=== PATIENT | female | born 1945 | race Caucasian/White ===

== ENCOUNTER 2020-04-30 12:02 | Emergency (ER) | payer MEDICARE ==
--- NOTE | 2020-04-30 13:14 | EDM.PDOC ---
ED HPI GENERAL MEDICAL PROBLEM - General Chief Complaint: Cardiovascular Problem Stated Complaint: COIVD POSITIVE Time Seen by Provider: 04/30/20 12:55 Source of Information: Reports: Patient, Family, Old Records History Limitations: Reports: No Limitations - History of Present Illness INITIAL COMMENTS - FREE TEXT/NARRATIVE: 74 yo female was just discharged from the [facility] a day or two ago after a 2 week admission for Covid. Required oxygen upon discharge due to the Covid and uses it around the clock. Yesterday in the morning she had a syncopal spell on the way to the bathroom and today had a near syncopal spell while sitting. The family called nurse direct and they were told to come here. Her stools have been darker than normal for the past 3 days. No fever or vomiting. Eating OK. Her pulse ox was low at home transiently and came up on its own. The daughter thought her hands might have been cold at the time. She didn't feel more SOB than usual. Has a pHx of a coronary stent. No recent chest pain. Onset: Sudden Onset Date: 04/29/20 Duration: Minutes:, Resolved Prior to Arrival Location: Reports: Generalized Quality: Reports: Other (no pain) Improves with: Reports: Other (lying) Worsens with: Reports: Other (? standing) Context: Reports: Other (See HPI) Associated Symptoms: Reports: Syncope, Weakness. Denies: Chest Pain, F ever/Chills, Nausea/Vomiting, Shortness of Breath Treatments ARCHIVES TECHNICIAN: Reports: Other (see below) (none) - Related Data Allergies Allergy/AdvReac Type Severity Reaction Status Date / Time acarbose Allergy Cannot Verified 04/30/20 12:35 Remember cortisone Allergy Tachycardia Verified 04/30/20 13:49 Iodinated Contrast Media Allergy Abdominal Verified 04/30/20 13:49 Cramps lisinopril Allergy Cannot Verified 04/30/20 12:41 Remember meperidine [From Demerol] Allergy Rash Verified 04/30/20 13:49 nifedipine Allergy Nausea Verified 04/30/20 13:49 pentazocine Allergy Nausea Verified 04/30/20 13:49 Gjxendx-Kwg-Lpa Reductase Allergy Cannot Verified 04/30/20 13:49 Inhibitor Remember Sulfa (Sulfonamide Allergy Rash Verified 04/30/20 13:49 Antibiotics) ticagrelor [From Brilinta] Allergy Rash Verified 04/30/20 13:49 Amoxicillin-Pot Clavulanate Allergy Cannot Uncoded 04/30/20 12:38 Remember Home Meds: Home Meds Aspirin 1 tab PO DAILY 04/30/20 [History] Clopidogrel [Plavix] 1 tab PO DAILY 04/30/20 [History] Dexbrompheniramine Maleate [Ala-Hist IR] 3 tab PO DAILY 04/30/20 [History] Furosemide [Lasix] 1 tab PO BEDTIME 04/30/20 [History] Furosemide [Lasix] 1 tab PO DAILY 04/30/20 [History] Hydrochlorothiazide/Losartan [Hyzaar 100-25 MG] 1 tab PO DAILY 04/30/20 [History] Insulin Regular, Human [Humulin R U-500 Kwikpen] 1 injection SQ TID 04/30/20 [History] Levothyroxine [Synthroid] 1 tab PO DAILY 04/30/20 [History] Metoprolol Succinate 150 mg PO DAILY 04/30/20 [History] Semaglutide [Rybelsus] 1 tab PO DAILY 04/30/20 [History] Spironolactone [Aldactone] 12.5 mg PO DAILY 04/30/20 [History] metFORMIN [Glucophage XR] 2 tab PO DAILY 04/30/20 [History] Past Medical History - Infectious Disease History Infectious Disease History: Reports: Novel Coronavirus - Past Surgical History Cardiovascular Surgical History: Reports: Coronary Artery Stent Social & Family History - Tobacco Use Tobacco Use Status *Q: Never Tobacco User ED ROS GENERAL - Review of Systems Review Of Systems: See Below Constitutional: Reports: No Symptoms HEENT: Reports: No Symptoms Respiratory: Reports: No Symptoms Cardiovascular: Reports: Dyspnea on Exertion (since Covid dx), Lightheadedness, Syncope (yesterday). Denies: Chest Pain, Edema, Palpitations GI/Abdominal: Reports: Black Stool (blackish-green). Denies: Bloody Stool, Constipation, Diarrhea, Nausea, Vomiting : Reports: No Symptoms Musculoskeletal: Reports: No Symptoms Skin: Reports: No Symptoms Neurological: Reports: No Symptoms ED EXAM, GENERAL - Physical Exam Exam: See Below Exam Limited By: No Limitations General Appearance: Alert, WD/WN, No Apparent Distress, Obese Eye Exam: Bilateral Eye: Normal Inspection Ears: Normal External Exam, Normal Canal, Hearing Grossly Normal Ear Exam: Bilateral Ear: Auricle Normal, Canal Normal Nose: Normal Inspection, No Blood Throat/Mouth: Normal Inspection, Normal Lips, Normal Oropharynx, Normal Voice, No Airway Compromise Head: Atraumatic, Normocephalic Neck: Normal Inspection Respiratory/Chest: No Respiratory Distress, No Accessory Muscle Use, Rales (throughout both lungs) Cardiovascular: Regular Rate, Rhythm, No Edema GI/Abdominal: Normal Bowel Sounds, Soft, Non-Tender, No Distention, Other (rectal exam: no impaction, stool hard, dark brown in color) Back Exam: Normal Inspection. No: CVA Tenderness (R), CVA Tenderness (L) Extremities: Normal Inspection, Normal Range of Motion, Non-Tender, No Pedal Edema Neurological: Alert, Oriented, CN II-XII Intact, Normal Cognition, No Motor/Sensory Deficits Psychiatric: Normal Affect, Normal Mood Skin Exam: Warm, Dry, Intact, Normal Color, No Rash Course - Vital Signs Last Recorded V/S: Last Vital Signs Temp 36.7 C 04/30/20 12:52 Pulse 75 04/30/20 16:03 Resp 12 04/30/20 16:03 BP 103/32 L 04/30/20 16:03 Pulse Ox 97 04/30/20 16:03 Orthostatic Blood Pressure [ 96/54 Standing] Orthostatic Blood Pressure [ 98/48 Sitting] Orthostatic Blood Pressure [ 106/43 Supine] - Orders/Labs/Meds Orders: Active Orders 24 hr Category Date Time Status Cardiac Monitoring [RC] .As Directed Care 04/30/20 12:58 Active Orthostatic Vital Signs [RC] ASDIRECTED Care 04/30/20 12:58 Active Labs: Laboratory Tests 04/30/20 04/30/20 04/30/20 Range/Units 13:14 13:14 13:14 WBC 12.9 H (4.5-11.0) K/uL RBC 2.97 L (3.30-5.50) M/uL Hgb 9.0 L (12.0-15.0) g/dL Hct 28.5 L (36.0-48.0) % MCV 96 (80-98) fL MCH 30 (27-31) pg MCHC 32 (32-36) % Plt Count 230 (150-400) K/uL Sodium 138 L (140-148) mmol/L Potassium 3.5 L (3.6-5.2) mmol/L Chloride 99 L (100-108) mmol/L Carbon Dioxide 29 (21-32) mmol/L Anion Gap 13.5 (5.0-14.0) mmol/L BUN 78 H* (7-18) mg/dL Creatinine 1.4 H (0.6-1.0) mg/dL Est Cr Clr Drug Dosing 33.50 mL/min Estimated GFR (MDRD) 37 L (>60) Glucose 213 H (74-106) mg/dL Calcium 8.5 (8.5-10.1) mg/dL Magnesium (1.8-2.4) mg/dL Troponin I 0.072 H* (0.000-0.056) ng/mL Urine Color (YELLOW) Urine Appearance (CLEAR) Urine pH (5.0-8.0) Ur Specific [place] (1.008-1.030) Urine Protein (NEGATIVE) mg/dL Urine Glucose (UA) (NEGATIVE) mg/dL Urine Ketones (NEGATIVE) mg/dL Urine Occult Blood (NEGATIVE) Urine Nitrite (NEGATIVE) Urine Bilirubin (NEGATIVE) Urine Urobilinogen (0.2-1.0) EU/dL Ur Leukocyte Esterase (NEGATIVE) Urine RBC (0-5) Urine WBC (0-5) Ur Epithelial Cells Amorphous Sediment Urine Bacteria Urine Mucus 04/30/20 04/30/20 04/30/20 Range/Units 13:31 13:55 15:20 WBC (4.5-11.0) K/uL RBC (3.30-5.50) M/uL Hgb (12.0-15.0) g/dL Hct (36.0-48.0) % MCV (80-98) fL MCH (27-31) pg MCHC (32-36) % Plt Count (150-400) K/uL Sodium (140-148) mmol/L Potassium (3.6-5.2) mmol/L Chloride (100-108) mmol/L Carbon Dioxide (21-32) mmol/L Anion Gap (5.0-14.0) mmol/L BUN (7-18) mg/dL Creatinine (0.6-1.0) mg/dL Est Cr Clr Drug Dosing mL/min Estimated GFR (MDRD) (>60) Glucose (74-106) mg/dL Calcium (8.5-10.1) mg/dL Magnesium 2.3 (1.8-2.4) mg/dL Troponin I 0.066 H* (0.000-0.056) ng/mL Urine Color Yellow (YELLOW) Urine Appearance Slightly cloudy A (CLEAR) Urine pH 5.0 (5.0-8.0) Ur Specific [place] 1.015 (1.008-1.030) Urine Protein Negative (NEGATIVE) mg/dL Urine Glucose (UA) Negative (NEGATIVE) mg/dL Urine Ketones Negative (NEGATIVE) mg/dL Urine Occult Blood Small H (NEGATIVE) Urine Nitrite Negative (NEGATIVE) Urine Bilirubin Negative (NEGATIVE) Urine Urobilinogen 1.0 (0.2-1.0) EU/dL Ur Leukocyte Esterase Trace H (NEGATIVE) Urine RBC 0-5 (0-5) Urine WBC 0-5 (0-5) Ur Epithelial Cells Few Amorphous Sediment Not seen Urine Bacteria Moderate Urine Mucus Not seen Meds: Medications Discontinued Medications Generic Name Dose Route Start Last Admin Trade Name Arronq PRN Reason Stop Dose Admin Potassium Chloride 20 meq 04/30/20 13:55 04/30/20 14:31 Potassium Chloride PO 04/30/20 13:56 20 meq ONETIME ONE Administration Sucralfate 1 gm 04/30/20 14:16 04/30/20 14:31 Carafate PO 04/30/20 14:17 1 gm ONETIME ONE Administration - Re-Assessments/Exams Free Text/Narrative Re-Assessment/Exam: 04/30/20 14:29 Was fed lunch while here. Departure - Departure Time of Disposition: 16:25 Disposition: Home, Self-Care 01 Condition: Fair Clinical Impression: Orthostatic hypotension, Blood in stool Anemia Qualifiers: Anemia type: unspecified type Qualified Code(s): D64.9 - Anemia, unspecified Clinical Impression: (Ruled Out): Orthostatic hypertension Instructions: Gastrointestinal Bleeding, [id number] Referrals: Andrey Duarte MD [Primary Care Provider] - Forms: ED Department Discharge Additional Instructions: Make sure to take your aspirin/Plavix with a meal, preferably the largest meal of the day. Get up from sitting to standing slowly and in stages as we talked about in the ER. Consider knee high support stockings to prevent your blood pressure from falling when you stand up. Consider taking a multiple vitamin with iron daily. Take Carafate as directed to heal your stomach. Recheck in the clinic as soon as possible. Return as needed. Sepsis Event Note (ED) - Evaluation Sepsis Screening Result: No Definite Risk - Focused Exam Vital Signs: Vital Signs Temp Pulse Resp BP Pulse Ox 04/30/20 16:03 75 12 103/32 L 97 04/30/20 15:15 71 18 113/38 L 96 04/30/20 14:35 75 13 101/41 L 97 04/30/20 12:52 36.7 C 72 16 104/39 L 95 04/30/20 12:20 36.7 C 72 16 104/39 L 95 - My Orders Last 24 Hours: My Active Orders 04/30/20 12:58 Cardiac Monitoring [RC] .As Directed Orthostatic Vital Signs [RC] ASDIRECTED - Assessment/Plan Last 24 Hours: My Active Orders 04/30/20 12:58 Cardiac Monitoring [RC] .As Directed Orthostatic Vital Signs [RC] ASDIRECTED
[2020-04-30] MEDS ORDERED: Potassium Chloride 10 MEQ Cap.ER PO ONE (13:55)
[2020-04-30] MEDS ORDERED: Sucralfate 1 GM Tab PO ONE (14:16)
== END 2020-04-30 16:48 | disposition home or self-care (01) ==
LOC: JP.ED 12:02
DX: I95.1 Orthostatic hypotension (principal); K92.1 Melena; D64.9 Anemia, unspecified; Z91.048 Other nonmedicinal substance allergy status; Z88.8 Allergy status to other drugs, medicaments and biological substances; Z88.5 Allergy status to narcotic agent; Z88.2 Allergy status to sulfonamides; Z88.0 Allergy status to penicillin; Z79.82 Long term (current) use of aspirin; Z79.02 Long term (current) use of antithrombotics/antiplatelets; Z79.4 Long term (current) use of insulin; Z79.899 Other long term (current) drug therapy; Z95.5 Presence of coronary angioplasty implant and graft
CPT/HCPCS: 36415; 80048; 81001; 82272; 83735; 84484; 85027; 99284; A9270; 99283

== ENCOUNTER 2020-05-18 07:36 | Emergency (ER) | payer MEDICARE ==
--- NOTE | 2020-05-18 08:03 | EDM.PDOC ---
ED HPI GENERAL MEDICAL PROBLEM - General Chief Complaint: Respiratory Problem Stated Complaint: breathing issues Time Seen by Provider: 05/18/20 07:45 Source of Information: Reports: Patient, EMS History Limitations: Reports: No Limitations - History of Present Illness INITIAL COMMENTS - FREE TEXT/NARRATIVE: 74-year-old female brought in by ambulance with significant shortness of breath and weakness. She has been struggling since being diagnosed with Covid 6 weeks ago, shortly after her procedure for a left subclavian stent. Angiogram was considered relatively normal as well as an echocardiogram fairly recently according to her primary provider. For a few weeks she did well at home, but over the past week she has been increasingly short of breath and weak. No fevers or chills. She was seen in the clinic yesterday and her Lasix was increased. I do not know what type of work-up was done but she did say she had labs drawn. I will try to get a hold of her primary provider. They did discuss hospitalization yesterday but they were going to see how she responded to the increased diuretics. This morning she barely made it to the bathroom because of weakness of shortness of breath so EMS was called. When they arrived her O2 saturations were only in the upper 60s and she was struggling. 10 L with a nonrebreather increased her O2 sats to 95%. She has no pain, no fever, and was told after her Covid experience that she had "significant scarring" in her lungs. She is also being treated for thrush. She did have a coronary artery stent last November according to the patient Onset: Gradual Duration: Week(s): (Symptoms have been worsening for at least a week) Associated Symptoms: Reports: Malaise, Shortness of Breath, Weakness. Denies: Confusion, Chest Pain, Cough Treatments DNA ANALYST: Reports: Other (see below) (Increase in her Lasix) - Related Data Allergies Allergy/AdvReac Type Severity Reaction Status Date / Time acarbose Allergy Cannot Verified 05/18/20 07:43 Remember cortisone Allergy Tachycardia Verified 05/18/20 07:43 Iodinated Contrast Media Allergy Abdominal Verified 05/18/20 07:43 Cramps lisinopril Allergy Cannot Verified 05/18/20 07:43 Remember meperidine [From Demerol] Allergy Rash Verified 05/18/20 07:43 nifedipine Allergy Nausea Verified 05/18/20 07:43 pentazocine Allergy Nausea Verified 05/18/20 07:43 Hnlyxbw-Uzn-Hnt Reductase Allergy Cannot Verified 05/18/20 07:43 Inhibitor Remember Sulfa (Sulfonamide Allergy Rash Verified 05/18/20 07:43 Antibiotics) ticagrelor [From Brilinta] Allergy Rash Verified 05/18/20 07:43 Amoxicillin-Pot Clavulanate Allergy Cannot Uncoded 05/18/20 07:43 Remember Home Meds: Home Meds Aspirin 1 tab PO DAILY 04/30/20 [History] Clopidogrel [Plavix] 1 tab PO DAILY 04/30/20 [History] Dexbrompheniramine Maleate [Ala-Hist IR] 3 tab PO DAILY 04/30/20 [History] Furosemide [Lasix] 1 tab PO DAILY 04/30/20 [History] Hydrochlorothiazide/Losartan [Hyzaar 100-25 MG] 0.5 tab PO DAILY 04/30/20 [History] Insulin Regular, Human [Humulin R U-500 Kwikpen] 1 injection SQ TID 04/30/20 [History] Levothyroxine [Synthroid] 1 tab PO DAILY 04/30/20 [History] Metoprolol Succinate 150 mg PO DAILY 04/30/20 [History] Semaglutide [Rybelsus] 1 tab PO DAILY 04/30/20 [History] Sucralfate [Carafate] 1 gm PO QID #1200 ml 04/30/20 [Rx] metFORMIN [Glucophage XR] 2 tab PO DAILY 04/30/20 [History] Past Medical History - Infectious Disease History Infectious Disease History: Reports: Novel Coronavirus - Past Surgical History Cardiovascular Surgical History: Reports: Coronary Artery Stent ED ROS GENERAL - Review of Systems Review Of Systems: See Below Constitutional: Reports: Malaise. Denies: Fever, Chills HEENT: Denies: Throat Pain Respiratory: Reports: Shortness of Breath. Denies: Sputum Cardiovascular: Reports: Palpitations. Denies: Chest Pain Endocrine: Reports: Fatigue GI/Abdominal: Denies: Nausea, Vomiting Skin: Reports: No Symptoms Neurological: Reports: Weakness. Denies: Headache Psychiatric: Reports: No Symptoms ED EXAM, GENERAL - Physical Exam Exam: See Below Exam Limited By: No Limitations General Appearance: Alert, Mild Distress Head: Atraumatic Respiratory/Chest: Respiratory Distress, Other (Mild increased respiratory effort especially without O2. Lungs actually surprisingly clear to the bases considering her O2 saturations and her difficulty.) Cardiovascular: Regular Rate, Rhythm, Tachycardia GI/Abdominal: Soft, Non-Tender Extremities: No: Pedal Edema Neurological: Alert, Oriented Psychiatric: Normal Affect, Normal Mood Skin Exam: Warm, Dry #1 Interpretation EKG Date: 05/18/20 Rhythm: NSR Rate (Beats/Min): 120 QRS: LBBB Comparison: NA - No Prior EKG Course - Vital Signs Last Recorded V/S: Last Vital Signs Temp 98.9 F 05/18/20 07:46 Pulse 116 H 05/18/20 09:34 Resp 32 H 05/18/20 09:34 BP 130/55 L 05/18/20 09:34 Pulse Ox 92 L 05/18/20 09:34 - Orders/Labs/Meds Orders: Active Orders 24 hr Category Date Time Status EKG 12 Lead [EK] Stat Ther 05/18/20 08:44 Ordered Labs: Laboratory Tests 05/18/20 05/18/20 05/18/20 Range/Units 07:41 08:01 08:01 WBC 11.8 H (4.5-11.0) K/uL RBC 2.69 L (3.30-5.50) M/uL Hgb 7.7 L (12.0-15.0) g/dL Hct 26.5 L (36.0-48.0) % MCV 99 H (80-98) fL MCH 29 (27-31) pg MCHC 29 L (32-36) % Plt Count 402 H (150-400) K/uL Add Manual Diff Yes Neutrophils % (Manual) 79 H (36-66) % Band Neutrophils % 4 L (5-11) % Lymphocytes % (Manual) 11 L (24-44) % Monocytes % (Manual) 4 (2-6) % Eosinophils % (Manual) 2 (2-4) % Puncture Site Lt radial ABG pH 7.562 H (7.350-7.450) ABG pCO2 25.0 L (35.0-42.0) mmHg ABG pO2 73.0 L (75.0-100.0) mmHg ABG HCO3 22.4 (22.0-26.0) mmol/L ABG Total CO2 20.9 L (21.0-25.0) mmol/L ABG O2 Saturation 96.3 (95.0-98.0) % ABG O2 Content 10.3 L (15.0-23.0) %vol ABG Base Excess 0.8 mm/L ABG Hemoglobin 7.9 L (12.0-16.0) g/dL ABG Oxyhemoglobin 92.4 % ABG Carboxyhemoglobin 3.3 H (0.0-1.6) % ABG Methemoglobin 0.8 % Mervin Test Not performed O2 Delivery Device Non rebr mask Oxygen Flow Rate 10.0 L Sodium 135 L (140-148) mmol/L Potassium 4.6 (3.6-5.2) mmol/L Chloride 98 L (100-108) mmol/L Carbon Dioxide 25 (21-32) mmol/L Anion Gap 16.6 H (5.0-14.0) mmol/L BUN 40 H (7-18) mg/dL Creatinine 1.4 H (0.6-1.0) mg/dL Est Cr Clr Drug Dosing 33.50 mL/min Estimated GFR (MDRD) 37 L (>60) Glucose 282 H (74-106) mg/dL Lactic Acid (0.4-2.0) mmol/L Calcium 8.9 (8.5-10.1) mg/dL Total Bilirubin 0.7 (0.2-1.0) mg/dL AST 71 H (15-37) U/L ALT 38 (12-78) U/L Alkaline Phosphatase 89 (46-116) U/L Troponin I 4.751 H* (0.000-0.056) ng/mL Total Protein 6.5 (6.4-8.2) g/dL Albumin 2.1 L (3.4-5.0) g/dL Globulin 4.4 H (2.3-3.5) g/dL Albumin/Globulin Ratio 0.5 L (1.2-2.2) 05/18/20 Range/Units 08:01 WBC (4.5-11.0) K/uL RBC (3.30-5.50) M/uL Hgb (12.0-15.0) g/dL Hct (36.0-48.0) % MCV (80-98) fL MCH (27-31) pg MCHC (32-36) % Plt Count (150-400) K/uL Add Manual Diff Neutrophils % (Manual) (36-66) % Band Neutrophils % (5-11) % Lymphocytes % (Manual) (24-44) % Monocytes % (Manual) (2-6) % Eosinophils % (Manual) (2-4) % Puncture Site ABG pH (7.350-7.450) ABG pCO2 (35.0-42.0) mmHg ABG pO2 (75.0-100.0) mmHg ABG HCO3 (22.0-26.0) mmol/L ABG Total CO2 (21.0-25.0) mmol/L ABG O2 Saturation (95.0-98.0) % ABG O2 Content (15.0-23.0) %vol ABG Base Excess mm/L ABG Hemoglobin (12.0-16.0) g/dL ABG Oxyhemoglobin % ABG Carboxyhemoglobin (0.0-1.6) % ABG Methemoglobin % Mervin Test O2 Delivery Device Oxygen Flow Rate L Sodium (140-148) mmol/L Potassium (3.6-5.2) mmol/L Chloride (100-108) mmol/L Carbon Dioxide (21-32) mmol/L Anion Gap (5.0-14.0) mmol/L BUN (7-18) mg/dL Creatinine (0.6-1.0) mg/dL Est Cr Clr Drug Dosing mL/min Estimated GFR (MDRD) (>60) Glucose (74-106) mg/dL Lactic Acid 3.4 H (0.4-2.0) mmol/L Calcium (8.5-10.1) mg/dL Total Bilirubin (0.2-1.0) mg/dL AST (15-37) U/L ALT (12-78) U/L Alkaline Phosphatase (46-116) U/L Troponin I (0.000-0.056) ng/mL Total Protein (6.4-8.2) g/dL Albumin (3.4-5.0) g/dL Globulin (2.3-3.5) g/dL Albumin/Globulin Ratio (1.2-2.2) Meds: Medications Discontinued Medications Generic Name Dose Route Start Last Admin Trade Name Freq PRN Reason Stop Dose Admin Heparin Sodium/Dextrose 25,000 units in 500 mls @ 16 mls/hr 05/18/20 09:30 05/18/20 10:17 Heparin 25,000 Units In D5w 500 Ml IV 800 units/hr TITRATE GAVIN 16 mls/hr Administration Protocol 800 UNITS/HR Methylprednisolone Sodium Succinate 125 mg 05/18/20 08:13 05/18/20 08:20 Solu-Medrol IVPUSH 05/18/20 08:14 125 mg ONETIME ONE Administration - Re-Assessments/Exams Free Text/Narrative Re-Assessment/Exam: 05/18/20 08:07 Patient needed 10 L with nonrebreather to maintain saturations in the mid 90s. When we try nasal cannula she fairly rapidly decreased into the low to mid 80s. Rebreather was reapplied. ABGs, CBC, CMP, troponin were obtained as well as lactic acid. A 1 view chest x-ray showed significant diffuse parenchymal infiltrates especially on the right side but no pleural effusions. I tried to contact her primary provider from [place] to get more recent records as she said that the doctor told her she had "significant scarring" from Covid. 05/18/20 08:33 I did get a hold of her primary from yesterday. Hemoglobin was 8.2, white count 11,000, glucose 429, GFR 37 and creatinine 1.4. Her electrolytes were "fine". Anion gap was 25. 05/18/20 08:46 Troponin returned 4.7, GFR and creatinine are stable from yesterday. EKG was ordered, she will likely need transfer to [place] for cardiology evaluation. 05/18/20 09:07 Reviewing the patient's records more thoroughly she did have some blood in her stool at the end of April and her hemoglobin has dropped fairly significantly this year. EKG showed left bundle branch block, I have no previous to compare to. Awaiting to talk to the hospitalist, I am hesitant to start heparin with her anemic history. 05/18/20 09:22 After discussion of the patient's complicated history and medical issues, Dr. Hernandez kindly accepted the patient for transfer to [place] in [place]. 800 units an hour of heparin drip will be initiated but no bolus. Antibiotics held for now. Departure - Departure Time of Disposition: 10:15 Disposition: DC/Tfer to Other 70 Clinical Impression: Hypoxia, Non-STEMI (non-ST elevated myocardial infarction) Respiratory failure Qualifiers: Chronicity: acute on chronic Respiratory failure complication: hypoxia Qualified Code(s): J96.21 - Acute and chronic respiratory failure with hypoxia Anemia Qualifiers: Anemia type: unspecified type Qualified Code(s): D64.9 - Anemia, unspecified - Discharge Information Referrals: PCP,None [Primary Care Provider] - Forms: ED Department Discharge Care Plan Goals: Patient will be urgently transferred to [facility] for evaluation of non- STEMI, worsening pulmonary scarring and hypoxia, and worsening anemia. Sepsis Event Note (ED) - Evaluation Sepsis Screening Result: Possible Sepsis Risk - Focused Exam Vital Signs: Vital Signs Temp Pulse Resp BP Pulse Ox 05/18/20 09:34 116 H 32 H 130/55 L 92 L 05/18/20 08:35 116 H 30 H 98/41 L 94 L 05/18/20 08:22 117 H 34 H 97/31 L 93 L 05/18/20 07:46 98.9 F 122 H 21 H 130/53 L 94 L 05/18/20 07:40 98.9 F 122 H 21 H 130/53 L 94 L - My Orders Last 24 Hours: My Active Orders 05/18/20 08:44 EKG 12 Lead [EK] Stat - Assessment/Plan Last 24 Hours: My Active Orders 05/18/20 08:44 EKG 12 Lead [EK] Stat
[2020-05-18] MEDS ORDERED: methylPREDNISolone Sodium Succinate 125 MG/2 ML SDV IVPUSH ONE (08:13)
--- NOTE | 2020-05-18 09:17 | CR ---
CHEST: Portable 05/18/2020 at 7:10 AM CLINICAL HISTORY:Weakness, fever, hypoxia COMPARISON:Rib study 2009 FINDINGS: The heart is enlarged. Patient has undergone previous sternotomy. Pulmonary vascularity is congested. There are diffuse bilateral pulmonary infiltrates or pulmonary edema. There are no effusions. IMPRESSION: Moderate cardiomegaly Vascular cephalization and bilateral infiltrate or edema suggest CHF. Underlying or superimposed pneumonitis is not excluded Previous sternotomy
[2020-05-18] MEDS ORDERED: Heparin Sodium/D5W 25,000 UNITS/500 ML BAG IV SCH (09:30)
== END 2020-05-18 10:16 | disposition other institution (70) ==
LOC: JP.ED 07:36
DX: I21.4 Non-ST elevation (NSTEMI) myocardial infarction (principal); J96.21 Acute and chronic respiratory failure with hypoxia; D64.9 Anemia, unspecified; I44.7 Left bundle-branch block, unspecified; Z86.16 Personal history of COVID-19; Z95.5 Presence of coronary angioplasty implant and graft; Z79.82 Long term (current) use of aspirin; Z79.02 Long term (current) use of antithrombotics/antiplatelets; Z88.8 Allergy status to other drugs, medicaments and biological substances; Z91.041 Radiographic dye allergy status; Z88.2 Allergy status to sulfonamides; Z88.0 Allergy status to penicillin
CPT/HCPCS: 36415; 36600; 71045; 80053; 82803; 83605; 84484; 85025; 93005; 96374; 99285; J1644; J2930